=== PATIENT | male | born 1990 | race Caucasian/White ===

== ENCOUNTER 2019-05-28 16:38 | Emergency (ER) | payer OTHER ==
[~2019-05-28] VITALS: Ht 175.3 cm; Wt 94.2 kg
[~2019-05-28 16:38] MED LIST: IBUP-1542 PO
[2019-05-28 16:57] VITALS: BP 139/75; PULSE 91; RESP 18; Ht 175.3 cm; Wt 94.2 kg
== END 2019-05-28 19:07 | disposition home or self-care (01) ==
LOC: E/R 16:38
DX: R30.0 Dysuria (principal)
CPT/HCPCS: 81003; 87086; 87591; 99283